=== PATIENT | female | born 1965 | race Caucasian/White ===

== ENCOUNTER 2020-10-20 09:13 | Outpatient (CLI) | payer OTHER, SELFPAY | END 2020-10-20 09:14 | disposition home or self-care (01) | DX: H90.3 Sensorineural hearing loss, bilateral (principal) | CPT/HCPCS: 92556; 92557; 92567 ==

== ENCOUNTER 2021-01-10 10:00 | Outpatient (RCR) | payer OTHER, SELFPAY | END 2021-02-06 23:59 | disposition home or self-care (01) | LOC: ANHAUDASC 10:00 | DX: Z46.1 Encounter for fitting and adjustment of hearing aid (principal) | CPT/HCPCS: 99199; V5160; V5261 ==

== ENCOUNTER 2021-04-13 08:30 | Outpatient (RCR) | payer OTHER, SELFPAY | END 2021-05-15 23:59 | disposition home or self-care (01) | LOC: ANHAUDASC 08:30 | DX: Z46.1 Encounter for fitting and adjustment of hearing aid (principal) | CPT/HCPCS: 99199 ==

== ENCOUNTER 2021-06-13 07:24 | Outpatient (RCR) | payer OTHER, SELFPAY | END 2021-09-11 23:59 | disposition home or self-care (01) | LOC: ANHAUDASC 07:24 | DX: Z46.1 Encounter for fitting and adjustment of hearing aid (principal) | CPT/HCPCS: 99199 ==

== ENCOUNTER 2022-02-09 08:38 | Outpatient (RCR) | payer OTHER, SELFPAY | END 2022-05-10 23:59 | disposition home or self-care (01) | LOC: ANHAUDASC 08:38 | DX: Z46.1 Encounter for fitting and adjustment of hearing aid (principal) | CPT/HCPCS: 99199 ==

== ENCOUNTER 2022-09-22 10:00 | Outpatient (RCR) | payer OTHER, SELFPAY | END 2022-10-10 23:59 | disposition home or self-care (01) | LOC: ANHAUDASC 10:00 | DX: Z46.1 Encounter for fitting and adjustment of hearing aid (principal) | CPT/HCPCS: 99199 ==